=== PATIENT | female | born 1955 | race Two or more races ===

== ENCOUNTER 2019-01-30 00:44 | Emergency (ER) | payer OTHER ==
[~2019-01-30] VITALS: Ht 154.9 cm; Wt 74.8 kg
--- NOTE | 2019-01-30 01:00 | NUR ---
PT [id number] [facility] C/O R KNEE PAIN S/P GLF X 3 WEEKS AGO. PATIENT ALSO C/O "BRONCHITIS". NAD NOTED. RESP EVEN AND UNLABORED. PT ON MONITOR IN BED 9. WILL CONTINUE TO MONITOR.
--- NOTE | 2019-01-30 01:24 | NUR ---
RADIOLOGY AT BEDSIDE FOR XRAY
[2019-01-30] MEDS ORDERED: ACETAMINOPHEN 325 MG TABLET PO ONE (01:30)
[2019-01-30] MEDS ORDERED: ACETAMINOPHEN 325 MG TABLET ONE (01:37)
[2019-01-30] MEDS ORDERED: AMOX/CLAVULANATE 875 MG TABLET PO ONE (04:00)
[2019-01-30] MEDS ORDERED: AZITHROMYCIN 250 MG TABLET PO ONE (04:00)
[2019-01-30] MEDS ORDERED: oxyCODONE/APAP (5/325 MG) 1 UDTAB TABLET PO ONE (04:00)
[2019-01-30] MEDS ORDERED: ACETAMINOPHEN W/ CODEINE#3 1 EA TABLET PO ONE (04:00)
[2019-01-30] MEDS ORDERED: ACETAMINOPHEN W/ CODEINE#3 1 EA TABLET ONE (04:18)
[2019-01-30] MEDS ORDERED: AZITHROMYCIN 250 MG TABLET ONE (04:19)
[2019-01-30] MEDS ORDERED: AMOX/CLAVULANATE 875 MG TABLET ONE (04:19)
[2019-01-30 04:25] VITALS: BP 149/80
--- NOTE | 2019-01-30 04:25 | NUR ---
Patient is resting comfortably in bed. VSS.
--- NOTE | 2019-01-30 05:53 | NUR ---
Patient discharged to home in stable condition. Written and verbal after care instructions given. Patient verbalizes understanding of instruction. PT AMBULATORY WITH STEADY GAIT.
== END 2019-01-30 05:54 | disposition home or self-care (01) ==
LOC: ER 00:45
DX: S80.01XA Contusion of right knee, initial encounter (principal); M16.11 Unilateral primary osteoarthritis, right hip; J45.909 Unspecified asthma, uncomplicated; J32.9 Chronic sinusitis, unspecified; F17.200 Nicotine dependence, unspecified, uncomplicated; I10 Essential (primary) hypertension; F31.9 Bipolar disorder, unspecified; Z98.890 Other specified postprocedural states; Z60.2 Problems related to living alone; W18.39XA Other fall on same level, initial encounter; Y93.89 Activity, other specified; Y92.89 Other specified places as the place of occurrence of the external cause; Y99.8 Other external cause status
CPT/HCPCS: 71045-TC; 72170-TC; 73564-TC

== ENCOUNTER 2022-06-19 11:06 | Inpatient (IN) | payer MEDICARE, OTHER ==
[~2022-06-19] VITALS: Ht 165.1 cm; Wt 48.5 kg
--- NOTE | 2022-06-19 11:30 | NUR ---
COVID SWAB DONE AND SENT TO LAB
--- NOTE | 2022-06-19 11:34 | NUR ---
SINGING TEACHER AT BEDSIDE FOR BLOOD DRAW
[2022-06-19] MEDS ORDERED: LEVO100T PO (11:44)
[2022-06-19] MEDS ORDERED: TEMA15CA PO (11:44)
[2022-06-19] MEDS ORDERED: ARIP15TA PO (11:44)
[2022-06-19] MEDS ORDERED: POTA-88 PO (11:44)
[2022-06-19] MEDS ORDERED: MULT-447 PO (11:44)
[2022-06-19] MEDS ORDERED: DOCU-141 PO (11:44)
[2022-06-19] MEDS ORDERED: SODI88SP18 NS (11:44)
[2022-06-19] MEDS ORDERED: PALI234D IM (11:44)
[2022-06-19] MEDS ORDERED: CALC-15 PO (11:44)
[2022-06-19] MEDS ORDERED: CARV12.52 PO (11:44)
[2022-06-19] MEDS ORDERED: CYCL30DR OP (11:44)
[2022-06-19] MEDS ORDERED: MAGN400O6 PO (11:44)
[2022-06-19] MEDS ORDERED: CHOL200013 PO (11:44)
[2022-06-19] MEDS ORDERED: PANT40TA49 PO (11:44)
[2022-06-19] MEDS ORDERED: FLUT16SP NS (11:44)
[2022-06-19] MEDS ORDERED: CYAN-51 PO (11:44)
[2022-06-19] MEDS ORDERED: AMLO-212 PO (11:44)
[2022-06-19] MEDS ORDERED: LAMO200T10 PO (11:44)
[2022-06-19] MEDS ORDERED: FURO-144 PO (11:44)
[2022-06-19] MEDS ORDERED: OLAN5TAB3 PO (11:44)
[2022-06-19] MEDS ORDERED: GABA-532 PO (11:44)
[2022-06-19] MEDS ORDERED: IPRA4AER INH (11:44)
[2022-06-19 11:46] LABS: BASOPHILS # (AUTO) 0.1 K/uL (0.0-0.2); BASOPHILS % (AUTO) 0.9 % (0.0-2.0); EOSINOPHILS % (AUTO) 2.6 % (0.0-6.0); HEMATOCRIT 42 % (33-45); HEMOGLOBIN 13.9 g/dL (11.5-14.8); LYMPHOCYTES # (AUTO) 1.5 K/uL (0.8-4.8); LYMPHOCYTES % (AUTO) 22.3 % (20.0-44.0); MEAN CORPUSCULAR HGB CONC 33 g/dl (31.0-36.0); MEAN CORPUSCULAR VOLUME 85 fL (82-100); MONOCYTES # (AUTO) 0.6 K/uL (0.1-1.30); MONOCYTES % (AUTO) 9.8 % (2.0-12.0); NEUTROPHILS # (AUTO) 4.2 K/uL (1.8-8.9); NEUTROPHILS % (AUTO) 64.4 % (43.0-81.0); PLATELET COUNT (AUTO) 239 K/uL (150-450); RED BLOOD CELL COUNT(AUTO) 4.93 MIL/uL (4.0-5.2); WHITE BLOOD COUNT (AUTO) 6.6 K/uL (4.3-11.0)
--- NOTE | 2022-06-19 11:51 | NUR ---
urine sample sent to lab
[2022-06-19 11:57] LABS: CALCIUM, SERUM 9.4 mg/dL (8.5-10.1); CARBON DIOXIDE 27 mmol/L (21-32); CHLORIDE 104 mmol/L (98-107); CREATININE 1.1 mg/dL (0.6-1.3); GLUCOSE 102 mg/dL (74-106); SODIUM SERUM 142 mmol/L (136-145); UREA NITROGEN, BLOOD 31 mg/dL (7-18)
[2022-06-19 12:06] LABS: ALANINE AMINOTRANSFERASE 49 U/L (12-78); ALBUMIN 3.5 g/dL (3.4-5.0); ALCOHOL, BLOOD < 3 mg/dL (0-0); ALKALINE PHOSPHATASE 95 U/L (46-116); ASPARTATE AMINOTRANSFERASE 32 U/L (15-37); BILIRUBIN,DIRECT 0.2 mg/dL (0.0-0.2); BILIRUBIN,TOTAL 0.7 mg/dL (0.2-1.0); TOTAL PROTEIN, SERUM 7.4 g/dL (6.4-8.2)
[2022-06-19 12:07] LABS: ACETAMINOPHEN < 10 ug/ml (10-30)
--- NOTE | 2022-06-19 12:30 | NUR ---
MOVE SHEET SUBMITTED.
[2022-06-19 12:41] LABS: BILIRUBIN,URINE MODERATE (NEGATIVE); COLOR,URINE YELLOW (YELLOW); LEUKOCYTE ESTERASE ,URINE LARGE (NEGATIVE); NITRITE, URINE NEGATIVE (NEGATIVE); PROTEIN,URINE TRACE mg/dl (NEGATIVE); UGLUCOSE NEGATIVE (NEGATIVE)
[2022-06-19 13:32] LABS: BACTERIA,URINE Moderate /HPF (None Seen)
[2022-06-19 13:33] LABS: MUCUS,URINE Many /LPF (None Seen); SQUAMOUS EPITHELIAL CELL,UR Many /HPF (None Seen)
[2022-06-19 13:34] LABS: CALCIUM OXALATE CRYSTALS,UR Few /HPF (None Seen)
[2022-06-19] MEDS ORDERED: CEFTRIAXONE 1GM BAG (ER ONLY) 1 GM/50 ML PIGGYBACK IV ONE (14:00)
[2022-06-19] MEDS ORDERED: IV NS 0.9% 1,000 ML IV ONE (14:00)
[2022-06-19] MEDS ORDERED: POTASSIUM CHLORIDE 20 MEQ TAB.PRT.SR PO ONE ×2 (14:00→14:30)
[2022-06-19] MEDS ORDERED: CEFTRIAXONE 1GM BAG (ER ONLY) 50 ML IV ONE (14:58)
[2022-06-19] MEDS ORDERED: CEFTRIAXONE 1 G in IV D5W 50 ML IV ONE (15:00)
--- NOTE | 2022-06-19 15:55 | NUR ---
GOT BED 219-B
--- NOTE | 2022-06-19 16:21 | NUR ---
REPORT GIVEN TO MARYANN KATZ FOR SABIHA
--- NOTE | 2022-06-19 16:40 | NUR ---
transferred to bed in stable condition
--- NOTE | 2022-06-19 16:45 | NUR ---
RN-ADMISSION NOTES ADMITTED 67 YEARS OLD FEMALE PATIENT FROM [facility]. PATIENT ON 5150 FOR DTS AND GD ADULT. PATIENT IS UNDER THE CARE OF DR. LORENZO ( PSYCHIATRIST) DR. STARK ( DECAL APPLIER ) MADE AWARE OF THE ADMISSION AND THAT MEDICATIONS TO BE RECONCILE. UPON FACE TO FACE INTERVIEW , PATIENT IS A/O X3,GUARDED,CALM AND COOPERATIVE. PATIENT VERBALLY CONSENT FOR THE ADMISSION PAPERS BUT REFUSED TO SIGN. FULL BODY ASSESSMENT DONE, OFFERED SHOWER BUT PATIENT REFUSED. ADVISEMENT AND PATIENT'S RIGHT /MEDICATIONS BOOKLET WAS GIVEN TO THE PATIENT. PATIENT WAS ORIENTED IN THE UNIT AND UNIT POLICIES. CALLED GRISELDA WALL @ [phone] ( FAMILY) AND LEFT A VOICE MESSAGE. ALL NEEDS ATTENDED AND ANTICIPATED. WILL ENDORSE TO INCOMING NURSE FOR CONTINUITY OF CARE.
[2022-06-19] MEDS ORDERED: ACETAMINOPHEN 325 MG TABLET PO PRN (17:00)
[2022-06-19] MEDS ORDERED: BLOOD SUGAR DIAGNOSTIC 1 EACH STRIP IN ONE (17:00)
[2022-06-19] MEDS ORDERED: MAG HYDROX/AL HYDROX/SIMETH 30 ML UDC PO PRN (17:00)
[2022-06-19] MEDS ORDERED: MAGNESIUM HYDROXIDE 30 ML UDC PO PRN (17:00)
--- NOTE | 2022-06-19 17:21 | NUR ---
admitting working on the chart, cannot depart at the moment
[2022-06-19 17:26] VITALS: BP 130/82
--- NOTE | 2022-06-19 19:30 | NUR ---
RECEIVED PT ASLEEP IN BED BUT EASILY AWAKENS, NO S/S OR COMPLAINTS OF PAIN AT THIS TIME. PT IS DISPLAYING NO S/S OF APPARENT DISTRESS AT THIS TIME. GUARDED, CALM AND COOPERATIVE. PT BREATHING IS UNLABORED WITH EQUAL RISE AND FALL OF THE CHEST. PT IS ALERT AND ORIENTED X3. ON ROOM AIR. PT DENIES SUICIDE IDEATIONS AND HOMICIDAL IDEATIONS AT THIS TIME. PT ASSISTED WITH TURNING AND REPOSITIONING Q2H AND PRN FOR COMFORT AND CIRCULATION. PT HAS NO NEEDS AT THIS TIME. PT EDUCATED ON THE USE OF THE CALL SILVERMAN. PT BED SIDE RAILS UP X2 FOR SAFETY. BED IS LOCKED AND IN LOW. WILL CONTINUE TO MONITOR Q15 MIN WITH THE HELP OF STAFF TO MAINTAIN SAFETY.
[2022-06-19 20:42] VITALS: BP 142/92
--- NOTE | 2022-06-20 06:55 | NUR ---
PATIENT ASLEEP COMFORTABLY IN BED. A/OX2. ABLE TO MAKE NEEDS KNOWN. UNSTEADY GAIT. ALL NEEDS ATTENDED AND ANTICIPATED. SAFETY MEASURES MAINTAINED. REMINDED PT ON THE USE OF THE CALL SILVERMAN. PT BED SIDE RAILS UP X2 FOR SAFETY. BED IS LOCKED AND IN LOW POSITION. WILL ENDORSE TO NEXT NURSE ON DUTY FOR CONTINUITY OF CARE.
[2022-06-20 07:53] LABS: CHOLESTEROL 157 mg/dL (<200); HDL CHOLESTEROL 42 mg/dL (40-60); LDL 100 mg/dL (0-99); TRIGLYCERIDES 49 mg/dL (30-150)
[2022-06-20 07:55] LABS: ALBUMIN 3.2 g/dL (3.4-5.0); BILIRUBIN,TOTAL 0.5 mg/dL (0.2-1.0); CALCIUM, SERUM 8.5 mg/dL (8.5-10.1); CREATININE 0.7 mg/dL (0.6-1.3); POTASSIUM 3.4 mmol/L (3.5-5.1); TOTAL PROTEIN, SERUM 6.8 g/dL (6.4-8.2)
[2022-06-20 08:00] VITALS: BP 117/70
[2022-06-20] MEDS: ENSURE ENLIVE 237 ML LIQUID (VANILLA) PO SCH ×2 (10:59→16:45)
[2022-06-20] MEDS: CEPHALEXIN MONOHYDRATE 500 MG CAPSULE PO SCH ×2 (11:00→21:10)
[2022-06-20] MEDS ORDERED: POTASSIUM CHLORIDE 20 MEQ TAB.PRT.SR PO SCH (12:00)
[2022-06-20 16:00] VITALS: BP 131/93
[2022-06-20 16:48] LABS: CREATININE 0.7 mg/dL (0.6-1.3)
[2022-06-20] MEDS: ARIPIPRAZOLE 5 MG TABLET PO SCH (17:36)
[2022-06-20] MEDS: LamoTRIgine 25 MG TABLET PO SCH (17:37)
--- NOTE | 2022-06-20 20:24 | NUR ---
RN NOTE:RECEIVED PATIENT RESTING IN HER ROOM, NO S/SX OF ACUTE DISTRESS NOTED,GUARDED, SUSPICIOUS, DISORGANIZED, PARANOID, NEEDS FREQUENT REDIRECTION. DENIES SI/HI AT THIS TIME.ENCOURAGE TO VERBALIZED ANY FEELING OR CONCERN, SAFETY MEASURES IN PLACE. WILL CONTINUE TO MONITOR Q15MIN ROUNDS FOR SAFETY AND BEHAVIOR.
[2022-06-20 21:03] VITALS: BP 132/77
[2022-06-20] MEDS ORDERED: ZOLPIDEM TARTRATE 5 MG TABLET PO PRN (21:30)
--- NOTE | 2022-06-21 06:00 | NUR ---
RN NOTES: REFUSED SHOWER PT. REFUSED SHOWER , PER PT. I DONT WANT SHOWER AT THIS TIME, PT BEHAVIOR UNCOOPERTIVE , EASILY AGITATED , ENCOURAGED X3 FOR SHOWER, BUT PT. STRONGLY REFUSED, ENDORSE TO AM SHIFT NURSE.
[2022-06-21 08:00] VITALS: BP 142/86
[2022-06-21] MEDS: ENSURE ENLIVE 237 ML LIQUID (VANILLA) PO SCH ×2 (08:19→16:14)
[2022-06-21] MEDS: ARIPIPRAZOLE 5 MG TABLET PO SCH (08:20)
[2022-06-21] MEDS: LamoTRIgine 25 MG TABLET PO SCH (08:20)
[2022-06-21] MEDS: CEPHALEXIN MONOHYDRATE 500 MG CAPSULE PO SCH ×2 (08:20→21:19)
[2022-06-21 08:22] LABS: CALCIUM, SERUM 9.1 mg/dL (8.5-10.1); CREATININE 0.7 mg/dL (0.6-1.3); POTASSIUM 3.3 mmol/L (3.5-5.1)
[2022-06-21] MEDS ORDERED: POTASSIUM CHLORIDE 20 MEQ TAB.PRT.SR PO SCH (10:30)
[2022-06-21 16:00] VITALS: BP 135/71
[2022-06-21 20:10] VITALS: BP 115/72
[2022-06-21 20:36] VITALS: BP 115/72
[2022-06-21] MEDS: TRAZODONE 50 MG TABLET PO SCH (21:22)
--- NOTE | 2022-06-22 06:40 | NUR ---
RN NOTE PATIENT SLEPT WELL AT NIGHT, DISHEVELED, MALODOROUS, OFFERED SHOWER MULTIPLE TIMES BUT PATIENT STATED," I WILL TAKE A SHOWER LATER, AFTER BREAKFAST." PATIENT CONTINUED TO TAKE A SHOWER AT THIS TIME. WILL ENDORSE TO AM NURSE TO ENCOURAGE PATIENT TO TAKE A SHOWER.
[2022-06-22 08:00] VITALS: BP 129/90
[2022-06-22 08:01] LABS: CALCIUM, SERUM 9.1 mg/dL (8.5-10.1); CREATININE 0.7 mg/dL (0.6-1.3); POTASSIUM 3.7 mmol/L (3.5-5.1)
[2022-06-22] MEDS: LamoTRIgine 25 MG TABLET PO SCH (09:07)
[2022-06-22] MEDS: ENSURE ENLIVE 237 ML LIQUID (VANILLA) PO SCH ×2 (09:08→17:53)
[2022-06-22] MEDS: CEPHALEXIN MONOHYDRATE 500 MG CAPSULE PO SCH ×2 (09:08→21:23)
[2022-06-22] MEDS: ARIPIPRAZOLE 5 MG TABLET PO SCH (09:08)
--- NOTE | 2022-06-22 13:23 | NUR ---
Facility Contact: SW attempted to contact Vangie caregiver at the facility ([phone]) and was unable to leave a voicemail.
--- NOTE | 2022-06-22 13:23 | NUR ---
DOT Initial Discharge Note: Patient currently resides at [facility] located at [address] [place] [address]; ([phone]). DOT contacted Vangie caregiver at the facility ([phone]) and was unable to leave a voicemail and the mailbox was full. DOT will work with the MD, treatment team, and pt to help coordinate appropriate discharge.
--- NOTE | 2022-06-22 13:24 | NUR ---
DOT Clinical Note: Pt placed on a 5150 hold for danger to herself and GD. Pt was not eating at her facility and was not taking her medications. Patient currently resides at [facility] located at [address] [place] [address]; ([phone]). DOT contacted Vangie caregiver at the facility ([phone]) and was unable to leave a voicemail and the mailbox was full. DOT will work with the MD, treatment team, and pt to help coordinate appropriate discharge.
--- NOTE | 2022-06-22 13:49 | NUR ---
Treatment Plan: Pt refused to sign treatment and was depressed.
--- NOTE | 2022-06-22 13:50 | NUR ---
Family Contact: SW contacted pt's niece Evelin ([phone]) and left a detailed voicemail of pt admission at the hospital.
[2022-06-22 16:00] VITALS: BP 134/86
[2022-06-22 20:06] VITALS: BP 147/71
[2022-06-22] MEDS: TRAZODONE 50 MG TABLET PO SCH (21:28)
[2022-06-22 22:56] VITALS: BP 147/71
[2022-06-23 08:00] VITALS: BP 129/86
--- NOTE | 2022-06-23 08:04 | NUR ---
WOUND CARE CONSULT: PT PRESENTS WITH RED RASH TO CHEST AREA,UNKNOWN ETIOLOGY AND RASH WITH SOME ODOR TO BREASTFOLDS, ALL PRESENT ON ADMISSION. RECOMMENDATIONS MADE FOR BREASTFOLD RASH (LOTRIMIN CREAM) AND DEFER TO MD FOR CHEST RASH. DISCUSSED SKIN PROTECTION WITH NURSING STAFF. PT AGREES TO TAKE SHOWER TODAY. MD IN AGREEMENT WITH PLAN OF CARE.
[2022-06-23] MEDS ORDERED: Z GUARD REMEDY 4 OZ OINT TP PRN (08:30)
[2022-06-23] MEDS ORDERED: CLOTRIMAZOLE 1% 15 GM TUBE TP SCH (09:00)
--- NOTE | 2022-06-23 09:10 | NUR ---
Facility Contact: DOT spoke with Helen from [facility] ([phone]) who stated that pt is welcomed back, however, stated [facility] or [facility] will contact this pattern chart writer to confirm.
[2022-06-23] MEDS: LamoTRIgine 25 MG TABLET PO SCH (09:42)
[2022-06-23] MEDS: CEPHALEXIN MONOHYDRATE 500 MG CAPSULE PO SCH ×2 (09:42→21:10)
[2022-06-23] MEDS: ARIPIPRAZOLE 5 MG TABLET PO SCH (09:42)
[2022-06-23] MEDS: ENSURE ENLIVE 237 ML LIQUID (VANILLA) PO SCH ×2 (09:43→17:10)
--- NOTE | 2022-06-23 09:55 | NUR ---
Facility Contact: DOT spoke with [facility] from admissions ([phone]) (F:[phone]) who stated pt is welcomed back and will require updated clinicals faxed.
[2022-06-23 16:15] VITALS: BP 119/62
[2022-06-23] MEDS: CLOTRIMAZOLE 1% 15 GM TUBE TP SCH (17:13)
--- NOTE | 2022-06-23 19:30 | NUR ---
GPS RN NOTES RECEIVED PT LYING IN BED ASLEEP, EASY TO AROUSE. A/O X3. NOT IN APPARENT DISTRESS. NO C/O PAIN OR DISCOMFORT. PT IS PASSIVE, FLAT AFFECT, GUARDED, WITHDRAWN, DISHEVELED. ENCOURAGED TO VERBALIZE FEELINGS OR THOUGHTS. SAFETY PRECAUTIONS IN PLACED. WILL CONTINUE TO MONITOR Q15MIN ROUNDS FOR SAFETY AND BEHAVIOR.
--- NOTE | 2022-06-23 21:00 | NUR ---
OFFERED PT TO SHOWER, STATED SHE WILL IN 30 MINS BUT REFUSED WHEN ASKED AGAIN. WILL ENCOURAGE TO SHOWER IN THE AM.
[2022-06-23] MEDS: TRAZODONE 50 MG TABLET PO SCH (21:10)
[2022-06-23 22:30] VITALS: BP 101/72
[2022-06-24 08:00] VITALS: BP 112/75
[2022-06-24] MEDS: LamoTRIgine 25 MG TABLET PO SCH (08:52)
[2022-06-24] MEDS: ARIPIPRAZOLE 5 MG TABLET PO SCH (08:53)
[2022-06-24] MEDS: CEPHALEXIN MONOHYDRATE 500 MG CAPSULE PO SCH ×2 (08:53→21:36)
[2022-06-24] MEDS: ENSURE ENLIVE 237 ML LIQUID (VANILLA) PO SCH ×2 (08:53→17:51)
[2022-06-24] MEDS: CLOTRIMAZOLE 1% 15 GM TUBE TP SCH ×2 (08:55→17:50)
--- NOTE | 2022-06-24 11:18 | NUR ---
Court Notification: SW contacted pt's darlin Waters ([phone]) and was unavailable. SW notified of 5250 hearing and left a voicemail.
--- NOTE | 2022-06-24 11:19 | NUR ---
Court Hearing: Patient's court hearing for 1930 was today and it was upheld for GD.
[2022-06-24] MEDS ORDERED: MAGNESIUM HYDROXIDE 30 ML UDC PO PRN (12:00)
[2022-06-24] MEDS ORDERED: Medication Not On Formulary EA (Ipratropium/Albuterol Sulfate (Combivent Respimat 20-100 INH SCH (13:00)
[2022-06-24] MEDS: GABAPENTIN 100 MG CAPSULE PO SCH ×2 (13:14→17:50)
[2022-06-24 16:00] VITALS: BP 142/86
[2022-06-24] MEDS: FLUTICASONE PROPIONATE 16 GM BOTTLE NS SCH (17:50)
[2022-06-24] MEDS: SALINE NASAL SPRAY 0.65% 1 BOTTLE BOTTLE NS SCH (17:51)
[2022-06-24] MEDS: IPRATROPIUM NEB FS 0.5 MG/2.5 ML AMPUL.NEB NEB SCH (19:30)
[2022-06-24] MEDS: ALBUTEROL FS 2.5 MG/0.5 ML VIAL.NEB NEB SCH (19:30)
[2022-06-24 20:00] VITALS: BP 117/82
[2022-06-24] MEDS: CARVEDILOL 12.5 MG TABLET PO SCH (21:37)
[2022-06-24] MEDS: TRAZODONE 50 MG TABLET PO SCH (21:50)
[2022-06-25] MEDS: IPRATROPIUM NEB FS 0.5 MG/2.5 ML AMPUL.NEB NEB SCH ×4 (01:30→20:45)
[2022-06-25] MEDS: ALBUTEROL FS 2.5 MG/0.5 ML VIAL.NEB NEB SCH ×4 (01:30→20:45)
[2022-06-25 08:00] VITALS: BP 106/64
[2022-06-25] MEDS: ENSURE ENLIVE 237 ML LIQUID (VANILLA) PO SCH ×2 (08:55→16:29)
[2022-06-25] MEDS: FLUTICASONE PROPIONATE 16 GM BOTTLE NS SCH ×2 (08:55→16:30)
[2022-06-25] MEDS: CEPHALEXIN MONOHYDRATE 500 MG CAPSULE PO SCH (08:56)
[2022-06-25] MEDS: GABAPENTIN 100 MG CAPSULE PO SCH ×4 (08:56→16:33)
[2022-06-25] MEDS: SALINE NASAL SPRAY 0.65% 1 BOTTLE BOTTLE NS SCH ×2 (08:56→16:30)
[2022-06-25] MEDS: ARIPIPRAZOLE 5 MG TABLET PO SCH (08:56)
[2022-06-25] MEDS: CARVEDILOL 12.5 MG TABLET PO SCH ×2 (08:57→20:45)
[2022-06-25] MEDS: DOCUSATE SODIUM 100 MG CAPSULE PO SCH ×2 (09:00→09:02)
[2022-06-25] MEDS ORDERED: FUROSEMIDE 40 MG TABLET PO SCH (09:00)
[2022-06-25] MEDS: AMLODIPINE BESYLATE 5 MG TABLET PO SCH (09:00)
[2022-06-25] MEDS: CHOLECALCIFEROL 1,000 UNIT TABLET (VIT D3) PO SCH (09:01)
[2022-06-25] MEDS: CALCIUM CARB 600MG /VIT D 1 EACH TABLET PO SCH (09:02)
[2022-06-25] MEDS: LamoTRIgine 25 MG TABLET PO SCH (09:07)
[2022-06-25] MEDS: CYANOCOBALAMIN 500 MCG TABLET PO SCH (09:08)
[2022-06-25] MEDS: MULTIVIT W/MINERALS 1 TAB TABLET PO SCH (09:08)
[2022-06-25] MEDS: LEVOTHYROXINE SODIUM 100 MCG TABLET PO SCH (09:08)
[2022-06-25] MEDS: PANTOPRAZOLE 40 MG TABLET.DR PO SCH (09:08)
[2022-06-25] MEDS: CLOTRIMAZOLE 1% 15 GM TUBE TP SCH ×3 (09:29→16:33)
--- NOTE | 2022-06-25 10:35 | NUR ---
Received pt. asleep in bed, breathing is even and unlabored. Ate 25% for breakfast, BP meds not given for a low BP and stereoplotter operator made aware and pt. refused for the Colace and compliant on the rest of the meds. Pt. is cooperative with skin treatment and refused to take shower. Encouraged to verbalize feelings and motivated to attend group activity. Needs attended and will continue to monitor for safety.
[2022-06-25 16:00] VITALS: BP 119/76
[2022-06-25 20:00] VITALS: BP 107/67
--- NOTE | 2022-06-25 20:20 | NUR ---
RN NOTES: PT. IN HER ROOM RESTING COMFORTABLY IN BED NO S/SX OF ACUTE DISTRESS NOTED. PATIENT REMAINS ISOLATIVE, WITHDRAWN, GUARDED. ENCOURAGED PT TO ATTEND IN GROUP ACTIVITIES.ENCOURAGED TO VERBALIZATION OF THOUGHTS AND FEELINGS. SAFETY PRECAUTIONS MAINTAINED.WILL CONTINUE TO MONITOR Q15MIN FOR SAFETY AND BEHAVIOR.
--- NOTE | 2022-06-25 20:46 | NUR ---
RN NOTES: PT. BP 107/65 , HELD COREG 12.5 FOR LOW BP, WILL CONTINUE TO MONITOR.
[2022-06-25] MEDS: TRAZODONE 50 MG TABLET PO SCH (21:22)
[2022-06-26] MEDS: IPRATROPIUM NEB FS 0.5 MG/2.5 ML AMPUL.NEB NEB SCH ×4 (01:30→19:30)
[2022-06-26] MEDS: ALBUTEROL FS 2.5 MG/0.5 ML VIAL.NEB NEB SCH ×4 (01:30→19:30)
[2022-06-26 08:00] VITALS: BP 120/77
[2022-06-26] MEDS: GABAPENTIN 100 MG CAPSULE PO SCH ×4 (08:26→16:51)
[2022-06-26] MEDS: CALCIUM CARB 600MG /VIT D 1 EACH TABLET PO SCH (08:26)
[2022-06-26] MEDS: CYANOCOBALAMIN 500 MCG TABLET PO SCH (08:27)
[2022-06-26] MEDS: ARIPIPRAZOLE 5 MG TABLET PO SCH (08:27)
[2022-06-26] MEDS: DOCUSATE SODIUM 100 MG CAPSULE PO SCH (08:27)
[2022-06-26] MEDS: CHOLECALCIFEROL 1,000 UNIT TABLET (VIT D3) PO SCH (08:27)
[2022-06-26] MEDS: PANTOPRAZOLE 40 MG TABLET.DR PO SCH (08:27)
[2022-06-26] MEDS: LEVOTHYROXINE SODIUM 100 MCG TABLET PO SCH (08:28)
[2022-06-26] MEDS: AMLODIPINE BESYLATE 5 MG TABLET PO SCH (08:28)
[2022-06-26] MEDS: CARVEDILOL 12.5 MG TABLET PO SCH ×2 (08:28→21:07)
[2022-06-26] MEDS: MULTIVIT W/MINERALS 1 TAB TABLET PO SCH (08:28)
[2022-06-26] MEDS: CLOTRIMAZOLE 1% 15 GM TUBE TP SCH ×2 (08:29→16:51)
[2022-06-26] MEDS: ENSURE ENLIVE 237 ML LIQUID (VANILLA) PO SCH ×2 (08:29→16:50)
[2022-06-26] MEDS: SALINE NASAL SPRAY 0.65% 1 BOTTLE BOTTLE NS SCH ×2 (08:30→16:50)
[2022-06-26] MEDS: FLUTICASONE PROPIONATE 16 GM BOTTLE NS SCH ×2 (08:30→16:50)
[2022-06-26] MEDS: FUROSEMIDE 40 MG TABLET PO SCH (08:32)
[2022-06-26] MEDS: LamoTRIgine 25 MG TABLET PO SCH (11:47)
--- NOTE | 2022-06-26 13:32 | NUR ---
gps/rn pt refused 1300 meds offered x3
[2022-06-26 16:00] VITALS: BP 132/82
--- NOTE | 2022-06-26 20:14 | NUR ---
RN NOTES :RECEIVED PT.IN HER ROOM RESTING COMFORTABLY IN BED NO S/SX OF ACUTE DISTRESS NOTED. PATIENT REMAINS ISOLATIVE, WITHDRAWN, GUARDED. ENCOURAGED PT TO ATTEND IN GROUP ACTIVITIES.ENCOURAGED TO VERBALIZATION OF THOUGHTS AND FEELINGS.SAFETY PRECAUTIONS MAINTAINED.WILL CONTINUE TO MONITOR . Q15MIN FOR SAFETY AND BEHAVIOR.ROUNDS FOR SAFETY AND BEHAVIOR.
[2022-06-26 20:54] VITALS: BP 126/84
[2022-06-26] MEDS: MIRTAZAPINE 15 MG TABLET PO SCH (21:35)
[2022-06-27] MEDS: IPRATROPIUM NEB FS 0.5 MG/2.5 ML AMPUL.NEB NEB SCH ×4 (01:19→19:30)
[2022-06-27] MEDS: ALBUTEROL FS 2.5 MG/0.5 ML VIAL.NEB NEB SCH ×4 (01:19→19:30)
[2022-06-27 08:00] VITALS: BP 133/82
[2022-06-27] MEDS: LEVOTHYROXINE SODIUM 100 MCG TABLET PO SCH (08:23)
[2022-06-27] MEDS: CYANOCOBALAMIN 500 MCG TABLET PO SCH (08:24)
[2022-06-27] MEDS: AMLODIPINE BESYLATE 5 MG TABLET PO SCH (08:24)
[2022-06-27] MEDS: SALINE NASAL SPRAY 0.65% 1 BOTTLE BOTTLE NS SCH ×2 (08:39→17:22)
[2022-06-27] MEDS: ENSURE ENLIVE 237 ML LIQUID (VANILLA) PO SCH ×2 (08:39→17:22)
[2022-06-27] MEDS: FLUTICASONE PROPIONATE 16 GM BOTTLE NS SCH ×2 (08:39→17:22)
[2022-06-27] MEDS: GABAPENTIN 100 MG CAPSULE PO SCH ×3 (09:00→17:25)
[2022-06-27] MEDS: CHOLECALCIFEROL 1,000 UNIT TABLET (VIT D3) PO SCH (09:00)
[2022-06-27] MEDS: LamoTRIgine 25 MG TABLET PO SCH ×2 (09:00→13:55)
[2022-06-27] MEDS: PANTOPRAZOLE 40 MG TABLET.DR PO SCH (09:00)
[2022-06-27] MEDS: ARIPIPRAZOLE 5 MG TABLET PO SCH ×2 (09:00→13:55)
[2022-06-27] MEDS: FUROSEMIDE 40 MG TABLET PO SCH (09:00)
[2022-06-27] MEDS: DOCUSATE SODIUM 100 MG CAPSULE PO SCH (09:00)
[2022-06-27] MEDS: MULTIVIT W/MINERALS 1 TAB TABLET PO SCH (09:00)
[2022-06-27] MEDS: CALCIUM CARB 600MG /VIT D 1 EACH TABLET PO SCH (09:00)
[2022-06-27] MEDS: CLOTRIMAZOLE 1% 15 GM TUBE TP SCH ×2 (09:00→17:24)
[2022-06-27] MEDS: CARVEDILOL 12.5 MG TABLET PO SCH ×2 (09:00→20:54)
[2022-06-27 16:00] VITALS: BP 114/69
--- NOTE | 2022-06-27 20:27 | NUR ---
RN NOTES: REFUSED SHOWER AND REFUSED SKIN ASSESSMENT PT. REFUSED SHOWER AND REFUSED SKIN ASSESSMENT, PER PT. I DONT WANT SHOWER AT THIS TIME, PT BEHAVIOR UNCOOPERTIVE , EASILY AGITATED , ENCOURAGED X3 FOR SHOWER, BUT PT. STRONGLY REFUSED.
[2022-06-27 20:51] VITALS: BP 115/76
[2022-06-27] MEDS: MIRTAZAPINE 15 MG TABLET PO SCH (21:41)
[2022-06-28] MEDS: ALBUTEROL FS 2.5 MG/0.5 ML VIAL.NEB NEB SCH ×4 (01:30→19:25)
[2022-06-28] MEDS: IPRATROPIUM NEB FS 0.5 MG/2.5 ML AMPUL.NEB NEB SCH ×4 (01:30→19:25)
[2022-06-28 08:00] VITALS: BP 102/69
[2022-06-28] MEDS: GABAPENTIN 100 MG CAPSULE PO SCH ×3 (09:00→17:00)
[2022-06-28] MEDS: CARVEDILOL 12.5 MG TABLET PO SCH ×3 (09:00→21:00)
[2022-06-28] MEDS: AMLODIPINE BESYLATE 5 MG TABLET PO SCH (09:00)
[2022-06-28] MEDS: LEVOTHYROXINE SODIUM 100 MCG TABLET PO SCH (09:00)
[2022-06-28] MEDS: PANTOPRAZOLE 40 MG TABLET.DR PO SCH (09:00)
[2022-06-28] MEDS: LamoTRIgine 25 MG TABLET PO SCH (09:00)
[2022-06-28] MEDS: ARIPIPRAZOLE 5 MG TABLET PO SCH (09:00)
[2022-06-28] MEDS: CHOLECALCIFEROL 1,000 UNIT TABLET (VIT D3) PO SCH (09:00)
[2022-06-28] MEDS: CLOTRIMAZOLE 1% 15 GM TUBE TP SCH ×2 (09:00→17:00)
[2022-06-28] MEDS: FLUTICASONE PROPIONATE 16 GM BOTTLE NS SCH ×2 (09:00→17:00)
[2022-06-28] MEDS: ENSURE ENLIVE 237 ML LIQUID (VANILLA) PO SCH ×2 (09:00→17:00)
[2022-06-28] MEDS: CYANOCOBALAMIN 500 MCG TABLET PO SCH (09:00)
[2022-06-28] MEDS: SALINE NASAL SPRAY 0.65% 1 BOTTLE BOTTLE NS SCH ×2 (09:00→17:00)
[2022-06-28] MEDS: CALCIUM CARB 600MG /VIT D 1 EACH TABLET PO SCH (09:00)
[2022-06-28] MEDS: FUROSEMIDE 40 MG TABLET PO SCH (09:00)
[2022-06-28] MEDS: DOCUSATE SODIUM 100 MG CAPSULE PO SCH (09:00)
[2022-06-28] MEDS: MULTIVIT W/MINERALS 1 TAB TABLET PO SCH (09:00)
--- NOTE | 2022-06-28 09:00 | NUR ---
GPS/RN REFUSED MEDS OFFERED X3
--- NOTE | 2022-06-28 13:00 | NUR ---
GPS/RN REFUSED MEDS OFFERED X3. CHARGE NURSE ANDREW RN OFFERED MEDICATIONS WELL WITH SAME RESULTS
[2022-06-28 16:11] VITALS: BP 121/68
--- NOTE | 2022-06-28 18:28 | NUR ---
GPS/RN PT REFUSED MEDS FOR 1700 OFFERED X3
--- NOTE | 2022-06-28 19:25 | NUR ---
RT Pt refused Q6 neb tx. No SOB or resp distress. RN Yovani notified that pt refused.
[2022-06-28] MEDS: MIRTAZAPINE 15 MG TABLET PO SCH (21:18)
--- NOTE | 2022-06-29 01:01 | NUR ---
PATIENT REFUSED SCHEDULE MEDICATION COREG 12.5MG AND REMERON 15MG. OFFERED MULTIPLE TIMES. DR. LORENZO NOTIFIED IN THE UNIT.
[2022-06-29] MEDS: IPRATROPIUM NEB FS 0.5 MG/2.5 ML AMPUL.NEB NEB SCH ×4 (01:27→20:59)
[2022-06-29] MEDS: ALBUTEROL FS 2.5 MG/0.5 ML VIAL.NEB NEB SCH ×5 (01:27→20:59)
[2022-06-29 08:00] VITALS: BP 124/81
[2022-06-29] MEDS: ARIPIPRAZOLE 5 MG TABLET PO SCH (08:53)
[2022-06-29] MEDS: LEVOTHYROXINE SODIUM 100 MCG TABLET PO SCH (08:53)
[2022-06-29] MEDS: CHOLECALCIFEROL 1,000 UNIT TABLET (VIT D3) PO SCH (08:54)
[2022-06-29] MEDS: LamoTRIgine 25 MG TABLET PO SCH (08:54)
[2022-06-29] MEDS: AMLODIPINE BESYLATE 5 MG TABLET PO SCH (08:54)
[2022-06-29] MEDS: CARVEDILOL 12.5 MG TABLET PO SCH ×2 (08:55→21:00)
[2022-06-29] MEDS: GABAPENTIN 100 MG CAPSULE PO SCH ×3 (08:55→17:45)
[2022-06-29] MEDS: CYANOCOBALAMIN 500 MCG TABLET PO SCH (08:55)
[2022-06-29] MEDS: PANTOPRAZOLE 40 MG TABLET.DR PO SCH (08:56)
[2022-06-29] MEDS: ENSURE ENLIVE 237 ML LIQUID (VANILLA) PO SCH ×2 (08:56→17:46)
[2022-06-29] MEDS: CALCIUM CARB 600MG /VIT D 1 EACH TABLET PO SCH (08:56)
[2022-06-29] MEDS: FUROSEMIDE 40 MG TABLET PO SCH (08:56)
[2022-06-29] MEDS: DOCUSATE SODIUM 100 MG CAPSULE PO SCH (08:56)
[2022-06-29] MEDS: SALINE NASAL SPRAY 0.65% 1 BOTTLE BOTTLE NS SCH ×2 (08:57→17:55)
[2022-06-29] MEDS: CLOTRIMAZOLE 1% 15 GM TUBE TP SCH ×2 (08:57→17:55)
[2022-06-29] MEDS: FLUTICASONE PROPIONATE 16 GM BOTTLE NS SCH ×2 (08:57→17:55)
[2022-06-29] MEDS: MULTIVIT W/MINERALS 1 TAB TABLET PO SCH (09:05)
[2022-06-29 16:00] VITALS: BP 101/73
[2022-06-29 20:07] VITALS: BP 100/59
[2022-06-29 20:15] VITALS: BP 100/59
--- NOTE | 2022-06-29 21:27 | NUR ---
RN NOTE: HELD COREG PATIENT'S BLOOD PRESSURE NOTED TO BE 103/59, 70. ASYMPTOMATIC AT THIS TIME, HELD COREG SCHEDULED AT 2100 TO PREVENT HYPOTENSION. WILL CONTINUE TO MONITOR THE PATIENT FOR ANY CHANGES.
[2022-06-29] MEDS: MIRTAZAPINE 15 MG TABLET PO SCH (22:39)
[2022-06-30] MEDS: ALBUTEROL FS 2.5 MG/0.5 ML VIAL.NEB NEB SCH ×4 (01:30→20:40)
[2022-06-30] MEDS: IPRATROPIUM NEB FS 0.5 MG/2.5 ML AMPUL.NEB NEB SCH ×4 (01:30→20:39)
[2022-06-30 08:00] VITALS: BP 108/65
[2022-06-30] MEDS: AMLODIPINE BESYLATE 5 MG TABLET PO SCH (09:18)
[2022-06-30] MEDS: MULTIVIT W/MINERALS 1 TAB TABLET PO SCH (09:19)
[2022-06-30] MEDS: ARIPIPRAZOLE 5 MG TABLET PO SCH (09:19)
[2022-06-30] MEDS: CALCIUM CARB 600MG /VIT D 1 EACH TABLET PO SCH (09:19)
[2022-06-30] MEDS: DOCUSATE SODIUM 100 MG CAPSULE PO SCH (09:20)
[2022-06-30] MEDS: LamoTRIgine 25 MG TABLET PO SCH (09:20)
[2022-06-30] MEDS: PANTOPRAZOLE 40 MG TABLET.DR PO SCH (09:20)
[2022-06-30] MEDS: CARVEDILOL 12.5 MG TABLET PO SCH ×2 (09:21→21:00)
[2022-06-30] MEDS: CYANOCOBALAMIN 500 MCG TABLET PO SCH (09:21)
[2022-06-30] MEDS: FUROSEMIDE 40 MG TABLET PO SCH (09:21)
[2022-06-30] MEDS: GABAPENTIN 100 MG CAPSULE PO SCH ×3 (09:21→17:17)
[2022-06-30] MEDS: ENSURE ENLIVE 237 ML LIQUID (VANILLA) PO SCH ×2 (09:22→17:18)
[2022-06-30] MEDS: LEVOTHYROXINE SODIUM 100 MCG TABLET PO SCH (09:24)
[2022-06-30] MEDS: FLUTICASONE PROPIONATE 16 GM BOTTLE NS SCH ×2 (09:25→17:17)
[2022-06-30] MEDS: SALINE NASAL SPRAY 0.65% 1 BOTTLE BOTTLE NS SCH ×2 (09:25→17:17)
[2022-06-30] MEDS: CHOLECALCIFEROL 1,000 UNIT TABLET (VIT D3) PO SCH (09:27)
[2022-06-30] MEDS: CLOTRIMAZOLE 1% 15 GM TUBE TP SCH ×2 (09:28→17:18)
--- NOTE | 2022-06-30 09:57 | NUR ---
PATIENT REFUSED TX RN NOTIFIED. PATIENT IS STABLE W/O DISTRESS. Addendum: 06/30/22 at 0958 by SNEHA DEL RIO RT Amended: Links added.
[2022-06-30 16:06] VITALS: BP 97/65
[2022-06-30 19:55] VITALS: BP 102/52
[2022-06-30 20:43] VITALS: BP 102/52
--- NOTE | 2022-06-30 21:16 | NUR ---
RN NOTE PATIENT REFUSED COREG SCHEDULED AT 2100. DESPITE OF RISKS AND BENEFITS EXPLANATIONS, PATIENT CONTINUED TO REFUSE.
[2022-06-30] MEDS: MIRTAZAPINE 15 MG TABLET PO SCH (22:01)
[2022-07-01] MEDS: IPRATROPIUM NEB FS 0.5 MG/2.5 ML AMPUL.NEB NEB SCH ×4 (01:30→21:06)
[2022-07-01] MEDS: ALBUTEROL FS 2.5 MG/0.5 ML VIAL.NEB NEB SCH ×4 (01:30→21:06)
[2022-07-01 08:00] VITALS: BP 105/69
[2022-07-01] MEDS: CYANOCOBALAMIN 500 MCG TABLET PO SCH (08:35)
[2022-07-01] MEDS: PANTOPRAZOLE 40 MG TABLET.DR PO SCH (08:36)
[2022-07-01] MEDS: DOCUSATE SODIUM 100 MG CAPSULE PO SCH (08:36)
[2022-07-01] MEDS: CARVEDILOL 12.5 MG TABLET PO SCH ×2 (08:38→21:00)
[2022-07-01] MEDS: ARIPIPRAZOLE 5 MG TABLET PO SCH (08:39)
[2022-07-01] MEDS: CALCIUM CARB 600MG /VIT D 1 EACH TABLET PO SCH (08:40)
[2022-07-01] MEDS: CHOLECALCIFEROL 1,000 UNIT TABLET (VIT D3) PO SCH (08:40)
[2022-07-01] MEDS: AMLODIPINE BESYLATE 5 MG TABLET PO SCH (08:40)
[2022-07-01] MEDS: MULTIVIT W/MINERALS 1 TAB TABLET PO SCH (08:41)
[2022-07-01] MEDS: GABAPENTIN 100 MG CAPSULE PO SCH ×3 (08:41→17:38)
[2022-07-01] MEDS: FUROSEMIDE 40 MG TABLET PO SCH (08:41)
[2022-07-01] MEDS: ENSURE ENLIVE 237 ML LIQUID (VANILLA) PO SCH ×2 (08:52→17:38)
--- NOTE | 2022-07-01 09:36 | NUR ---
RT Patient refused breathing tx. No SOB or respiratory distress noted.
[2022-07-01] MEDS: SALINE NASAL SPRAY 0.65% 1 BOTTLE BOTTLE NS SCH ×2 (09:45→17:38)
[2022-07-01] MEDS: FLUTICASONE PROPIONATE 16 GM BOTTLE NS SCH ×2 (09:45→17:38)
[2022-07-01] MEDS: CLOTRIMAZOLE 1% 15 GM TUBE TP SCH ×2 (09:46→17:39)
[2022-07-01] MEDS: LEVOTHYROXINE SODIUM 100 MCG TABLET PO SCH (09:47)
[2022-07-01] MEDS: LamoTRIgine 100 MG TABLET PO SCH (11:17)
--- NOTE | 2022-07-01 13:19 | NUR ---
RT Patient refused breathing tx again. RN Elba notified.
[2022-07-01 16:00] VITALS: BP 107/68
[2022-07-01 20:00] VITALS: BP 103/70
[2022-07-01] MEDS: MIRTAZAPINE 15 MG TABLET PO SCH (21:24)
[2022-07-02] MEDS: ALBUTEROL FS 2.5 MG/0.5 ML VIAL.NEB NEB SCH ×4 (01:30→20:26)
[2022-07-02] MEDS: IPRATROPIUM NEB FS 0.5 MG/2.5 ML AMPUL.NEB NEB SCH ×4 (01:30→20:26)
--- NOTE | 2022-07-02 01:56 | NUR ---
Pt refused breathing tx, RN is aware.
[2022-07-02 08:00] VITALS: BP 129/82
[2022-07-02] MEDS: ARIPIPRAZOLE 5 MG TABLET PO SCH (08:54)
[2022-07-02] MEDS: GABAPENTIN 100 MG CAPSULE PO SCH ×3 (08:54→17:10)
[2022-07-02] MEDS: CHOLECALCIFEROL 1,000 UNIT TABLET (VIT D3) PO SCH (08:54)
[2022-07-02] MEDS: CYANOCOBALAMIN 500 MCG TABLET PO SCH (08:54)
[2022-07-02] MEDS: LamoTRIgine 100 MG TABLET PO SCH (08:54)
[2022-07-02] MEDS: CARVEDILOL 12.5 MG TABLET PO SCH ×2 (08:55→21:50)
[2022-07-02] MEDS: CALCIUM CARB 600MG /VIT D 1 EACH TABLET PO SCH (08:55)
[2022-07-02] MEDS: AMLODIPINE BESYLATE 5 MG TABLET PO SCH (08:55)
[2022-07-02] MEDS: FUROSEMIDE 40 MG TABLET PO SCH (08:55)
[2022-07-02] MEDS: PANTOPRAZOLE 40 MG TABLET.DR PO SCH (09:01)
[2022-07-02] MEDS: LEVOTHYROXINE SODIUM 100 MCG TABLET PO SCH (09:03)
[2022-07-02] MEDS: DOCUSATE SODIUM 250 MG CAPSULE PO SCH (09:03)
[2022-07-02] MEDS: MULTIVIT W/MINERALS 1 TAB TABLET PO SCH (09:03)
[2022-07-02] MEDS: ENSURE ENLIVE 237 ML LIQUID (VANILLA) PO SCH ×2 (09:05→17:10)
[2022-07-02] MEDS: FLUTICASONE PROPIONATE 16 GM BOTTLE NS SCH ×2 (09:06→17:11)
[2022-07-02] MEDS: SALINE NASAL SPRAY 0.65% 1 BOTTLE BOTTLE NS SCH ×2 (09:07→17:11)
[2022-07-02] MEDS: CLOTRIMAZOLE 1% 15 GM TUBE TP SCH ×2 (10:08→17:11)
--- NOTE | 2022-07-02 13:43 | NUR ---
RN-NOTES PATIENT REFUSED NEURONTIN 300MG P.O . OFFERED X3
[2022-07-02 16:00] VITALS: BP 125/83
--- NOTE | 2022-07-02 18:33 | NUR ---
RN-NOTES PATIENT ISOLATIVE IN THE ROOM ENCOURAGED TO ATTEND GROUPS BUT PREFERS TO STAY IN THE ROOM ,NO ACUTE DISTRESS NOTED.PATIENT AMBULATES TO THE BATHROOM WITH STEADY GAIT.GUARDED,REFUSED 1300 MEDICATIONS THIS SHIFT.ALL NEEDS ATTENDED AND ANTICIPATED. WILL CONT. MONITORING FOR SAFETY AND BEHAVIOR.WILL ENDORSE TO INCOMING SHIFT FOR CONTINUITY OF CARE.
--- NOTE | 2022-07-02 19:30 | NUR ---
GPS RN NOTE, RECEIVED PATIENT AWAKE AND IN BED, NO S/S OR COMPLAINTS OF PAIN AT THIS TIME. PATIENT IS DISPLAYING NO S/S OF APPARENT DISTRESS AT THIS TIME. PATIENT BREATHING IS UNLABORED WITH EQUAL RISE AND FALL OF THE CHEST. PATIENT IS ALERT AND ORIENTED X 3 ON ROOM AIR WITH A SPO2 99%. PATIENT IS SELECTIVE WITH MEDICATIONS, DEPRESSED, ISOLATIVE, MALODOROUS, AND COOPERATIVE. PATIENT DENIES SUICIDAL AND HOMICIDAL IDEATIONS AT THIS TIME. PATIENT ASSISTED WITH TURNING AND REPOSITIONING Q2HR AND PRN FOR COMFORT AND CIRCULATION. PATIENT HAS NO NEEDS AT THIS TIME. PATIENT EDUCATED ON THE USE OF THE CALL SILVERMAN. PATIENT BED SIDE RAILS UP X 2 FOR SAFETY. PATIENT BED IS LOCKED, LOW, WITH BED ALARM ON. WILL CONTINUE TO MONITOR THIS PATIENT Q15 MINUTES WITH THE HELP OF STAFF TO MAINTAIN SAFETY.
[2022-07-02 20:00] VITALS: BP 110/66
--- NOTE | 2022-07-02 21:07 | NUR ---
Pt refused neb tx
[2022-07-02] MEDS: MIRTAZAPINE 15 MG TABLET PO SCH (21:54)
--- NOTE | 2022-07-02 21:54 | NUR ---
GPS RN NOTE, PATIENT REFUSED REMERON 15MG PO HS. OFFERED REMERON THREE TIMES AND STILL PATIENT REFUSED STATING, " NO I JUST FEEL LIKE IT DOES NOTHING FOR ME SO I'M NOT GOING TO TAKE IT ". EDUCATED PATIENT ON THE RISKS AND BENEFITS OF TAKING AND REFUSING AFOREMENTIONED MEDICATION. WILL CONTINUE TO MONITOR THIS PATIENT WITH THE HELP OF STAFF.
[2022-07-03] MEDS: IPRATROPIUM NEB FS 0.5 MG/2.5 ML AMPUL.NEB NEB SCH ×4 (01:30→19:30)
[2022-07-03] MEDS: ALBUTEROL FS 2.5 MG/0.5 ML VIAL.NEB NEB SCH ×4 (01:30→19:30)
[2022-07-03 08:00] VITALS: BP 115/77
[2022-07-03] MEDS: FLUTICASONE PROPIONATE 16 GM BOTTLE NS SCH ×2 (09:53→18:01)
[2022-07-03] MEDS: SALINE NASAL SPRAY 0.65% 1 BOTTLE BOTTLE NS SCH ×2 (09:53→18:02)
[2022-07-03] MEDS: CLOTRIMAZOLE 1% 15 GM TUBE TP SCH ×2 (09:54→18:02)
[2022-07-03] MEDS: ENSURE ENLIVE 237 ML LIQUID (VANILLA) PO SCH ×2 (09:54→17:59)
[2022-07-03] MEDS: CHOLECALCIFEROL 1,000 UNIT TABLET (VIT D3) PO SCH (09:59)
[2022-07-03] MEDS: CARVEDILOL 12.5 MG TABLET PO SCH ×2 (09:59→20:36)
[2022-07-03] MEDS: DOCUSATE SODIUM 250 MG CAPSULE PO SCH (09:59)
[2022-07-03] MEDS: CALCIUM CARB 600MG /VIT D 1 EACH TABLET PO SCH (09:59)
[2022-07-03] MEDS: FUROSEMIDE 40 MG TABLET PO SCH (09:59)
[2022-07-03] MEDS: AMLODIPINE BESYLATE 5 MG TABLET PO SCH (09:59)
[2022-07-03] MEDS: MULTIVIT W/MINERALS 1 TAB TABLET PO SCH (10:00)
[2022-07-03] MEDS: LEVOTHYROXINE SODIUM 100 MCG TABLET PO SCH (10:00)
[2022-07-03] MEDS: PANTOPRAZOLE 40 MG TABLET.DR PO SCH (10:00)
[2022-07-03] MEDS: CYANOCOBALAMIN 500 MCG TABLET PO SCH (10:00)
[2022-07-03] MEDS: LamoTRIgine 100 MG TABLET PO SCH (10:00)
[2022-07-03] MEDS: GABAPENTIN 100 MG CAPSULE PO SCH ×3 (10:01→18:00)
[2022-07-03] MEDS: ARIPIPRAZOLE 5 MG TABLET PO SCH (10:01)
[2022-07-03 16:00] VITALS: BP 102/59
[2022-07-03] MEDS: MEGESTROL ACETATE 40 MG TABLET PO SCH (18:01)
--- NOTE | 2022-07-03 20:29 | NUR ---
RN NOTES:RECEIVED PT.IN HER ROOM RESTING ,PATIENT REMAINS DEPRESSED ISOLATIVE, WITHDRAWN, GUARDED.MALORDOURS ENCOURAGED TO TAKE SHOWER AND ENCOURAGED PT TO ATTEND IN GROUP ACTIVITIES.ENCOURAGED TO VERBALIZATION OF THOUGHTS AND FEELINGS.SAFETY PRECAUTIONS MAINTAINED.WILL CONTINUE TO MONITOR .Q15MIN FOR SAFETY AND BEHAVIOR.ROUNDS FOR SAFETY AND BEHAVIOR.
--- NOTE | 2022-07-03 20:37 | NUR ---
RN NOTES: PT. BP 105/65 , HELD COREG 12.5 FOR LOW BP, WILL CONTINUE TO MONITOR.
[2022-07-03 20:38] VITALS: BP 100/59
[2022-07-03 20:39] VITALS: BP 105/65
[2022-07-03] MEDS: MIRTAZAPINE 15 MG TABLET PO SCH (22:09)
[2022-07-04] MEDS: IPRATROPIUM NEB FS 0.5 MG/2.5 ML AMPUL.NEB NEB SCH ×4 (02:30→19:30)
[2022-07-04] MEDS: ALBUTEROL FS 2.5 MG/0.5 ML VIAL.NEB NEB SCH ×4 (02:30→19:30)
--- NOTE | 2022-07-04 07:10 | NUR ---
RN NOTES: REFUSED SHOWER AND REFUSED SKIN ASSESSMENT PT. REFUSED SHOWER AND REFUSED SKIN ASSESSMENT, PER PT. I DONT WANT SHOWER AT THIS TIME, PT BEHAVIOR UNCOOPERTIVE , EASILY AGITATED , ENCOURAGED X3 FOR SHOWER, BUT PT. STRONGLY REFUSED, WILL ENDORSE TO AM NURSE.
[2022-07-04 08:00] VITALS: BP 95/66
[2022-07-04] MEDS: SALINE NASAL SPRAY 0.65% 1 BOTTLE BOTTLE NS SCH ×2 (08:23→17:22)
[2022-07-04] MEDS: FLUTICASONE PROPIONATE 16 GM BOTTLE NS SCH ×2 (08:23→17:21)
[2022-07-04] MEDS: ENSURE ENLIVE 237 ML LIQUID (VANILLA) PO SCH ×2 (08:23→17:22)
[2022-07-04] MEDS: CARVEDILOL 12.5 MG TABLET PO SCH ×2 (08:24→21:00)
[2022-07-04] MEDS: AMLODIPINE BESYLATE 5 MG TABLET PO SCH (08:25)
[2022-07-04] MEDS: FUROSEMIDE 40 MG TABLET PO SCH (08:25)
[2022-07-04] MEDS: CLOTRIMAZOLE 1% 15 GM TUBE TP SCH ×2 (08:26→17:22)
[2022-07-04 08:28] LABS: BASOPHILS % (AUTO) 0.9 % (0.0-2.0); EOSINOPHILS % (AUTO) 5.5 % (0.0-6.0); HEMATOCRIT 41 % (33-45); HEMOGLOBIN 13.2 g/dL (11.5-14.8); LYMPHOCYTES # (AUTO) 1.6 K/uL (0.8-4.8); LYMPHOCYTES % (AUTO) 31.2 % (20.0-44.0); MEAN CORPUSCULAR HGB CONC 32 g/dl (31.0-36.0); MEAN CORPUSCULAR VOLUME 89 fL (82-100); MONOCYTES # (AUTO) 0.4 K/uL (0.1-1.30); MONOCYTES % (AUTO) 8.5 % (2.0-12.0); NEUTROPHILS # (AUTO) 2.8 K/uL (1.8-8.9); NEUTROPHILS % (AUTO) 53.9 % (43.0-81.0); PLATELET COUNT (AUTO) 217 K/uL (150-450); RED BLOOD CELL COUNT(AUTO) 4.64 MIL/uL (4.0-5.2); WHITE BLOOD COUNT (AUTO) 5.2 K/uL (4.3-11.0)
[2022-07-04] MEDS: CHOLECALCIFEROL 1,000 UNIT TABLET (VIT D3) PO SCH (08:29)
[2022-07-04] MEDS: MEGESTROL ACETATE 40 MG TABLET PO SCH ×2 (08:29→17:23)
[2022-07-04] MEDS: CYANOCOBALAMIN 500 MCG TABLET PO SCH (08:29)
[2022-07-04] MEDS: CALCIUM CARB 600MG /VIT D 1 EACH TABLET PO SCH (08:29)
[2022-07-04] MEDS: DOCUSATE SODIUM 250 MG CAPSULE PO SCH (08:29)
[2022-07-04] MEDS: LEVOTHYROXINE SODIUM 100 MCG TABLET PO SCH (08:30)
[2022-07-04] MEDS: GABAPENTIN 100 MG CAPSULE PO SCH ×3 (08:30→17:23)
[2022-07-04] MEDS: ARIPIPRAZOLE 5 MG TABLET PO SCH (08:30)
[2022-07-04] MEDS: MULTIVIT W/MINERALS 1 TAB TABLET PO SCH (08:30)
[2022-07-04] MEDS: LamoTRIgine 100 MG TABLET PO SCH (08:30)
[2022-07-04] MEDS: PANTOPRAZOLE 40 MG TABLET.DR PO SCH (08:30)
[2022-07-04 09:23] LABS: CALCIUM, SERUM 9.1 mg/dL (8.5-10.1); CREATININE 0.9 mg/dL (0.6-1.3); MAGNESIUM 2.2 mg/dL (1.8-2.4); PHOSPHORUS 3.2 mg/dL (2.5-4.9); POTASSIUM 3.5 mmol/L (3.5-5.1)
[2022-07-04 16:00] VITALS: BP 90/60
[2022-07-04 20:47] VITALS: BP_SYST 102; BP_SYST 95; BP_DIAS 52; BP_DIAS 63
[2022-07-04] MEDS: MIRTAZAPINE 15 MG TABLET PO SCH (21:39)
--- NOTE | 2022-07-04 21:40 | NUR ---
RN NOTES: PT. BP 102/63 , HELD COREG 12.5 FOR LOW BP, WILL CONTINUE TO MONITOR.
[2022-07-05] MEDS: IPRATROPIUM NEB FS 0.5 MG/2.5 ML AMPUL.NEB NEB SCH ×4 (00:56→19:30)
[2022-07-05] MEDS: ALBUTEROL FS 2.5 MG/0.5 ML VIAL.NEB NEB SCH ×4 (00:56→19:30)
[2022-07-05 08:00] VITALS: BP 103/72
[2022-07-05] MEDS: SALINE NASAL SPRAY 0.65% 1 BOTTLE BOTTLE NS SCH ×2 (08:56→16:59)
[2022-07-05] MEDS: FLUTICASONE PROPIONATE 16 GM BOTTLE NS SCH ×2 (08:56→16:59)
[2022-07-05] MEDS: AMLODIPINE BESYLATE 5 MG TABLET PO SCH (08:57)
[2022-07-05] MEDS: FUROSEMIDE 40 MG TABLET PO SCH (08:57)
[2022-07-05] MEDS: CARVEDILOL 12.5 MG TABLET PO SCH ×2 (08:57→21:00)
[2022-07-05] MEDS: ENSURE ENLIVE 237 ML LIQUID (VANILLA) PO SCH ×2 (08:58→16:57)
[2022-07-05] MEDS: CHOLECALCIFEROL 1,000 UNIT TABLET (VIT D3) PO SCH (09:01)
[2022-07-05] MEDS: DOCUSATE SODIUM 250 MG CAPSULE PO SCH (09:01)
[2022-07-05] MEDS: CYANOCOBALAMIN 500 MCG TABLET PO SCH (09:01)
[2022-07-05] MEDS: LEVOTHYROXINE SODIUM 100 MCG TABLET PO SCH (09:02)
[2022-07-05] MEDS: ARIPIPRAZOLE 5 MG TABLET PO SCH (09:02)
[2022-07-05] MEDS: CALCIUM CARB 600MG /VIT D 1 EACH TABLET PO SCH (09:02)
[2022-07-05] MEDS: MULTIVIT W/MINERALS 1 TAB TABLET PO SCH (09:02)
[2022-07-05] MEDS: MEGESTROL ACETATE 40 MG TABLET PO SCH ×2 (09:02→16:58)
[2022-07-05] MEDS: GABAPENTIN 100 MG CAPSULE PO SCH ×3 (09:02→16:58)
[2022-07-05] MEDS: PANTOPRAZOLE 40 MG TABLET.DR PO SCH (09:02)
[2022-07-05] MEDS: LamoTRIgine 100 MG TABLET PO SCH (09:02)
[2022-07-05] MEDS: CLOTRIMAZOLE 1% 15 GM TUBE TP SCH ×2 (09:03→16:58)
--- NOTE | 2022-07-05 13:54 | NUR ---
RT Accidentally clicked 1330 meds on EMAR. Patient REFUSED breathing tx.
[2022-07-05 16:00] VITALS: BP 100/66
--- NOTE | 2022-07-05 20:44 | NUR ---
RN NOTES: REFUSED SKIN ASSESSMENT AND REFUSED SHOWER PT. REFUSED SHOWER AND REFUSED WEEKLY SKIN ASSESSMENT, PER PT. I DONT WANT ANY SKIN ASSESSMENT AND SHOWER AT THIS TIME, PT BEHAVIOR UNCOOPERTIVE , EASILY AGITATED , ENCOURAGED X3 FOR SHOWER, BUT PT. STRONGLY REFUSED.
[2022-07-05 20:53] VITALS: BP 102/66
[2022-07-05] MEDS: MIRTAZAPINE 15 MG TABLET PO SCH (21:03)
[2022-07-06] MEDS: ALBUTEROL FS 2.5 MG/0.5 ML VIAL.NEB NEB SCH ×4 (01:01→19:30)
[2022-07-06] MEDS: IPRATROPIUM NEB FS 0.5 MG/2.5 ML AMPUL.NEB NEB SCH ×4 (01:01→19:30)
[2022-07-06 08:00] VITALS: BP 112/81
[2022-07-06] MEDS: MULTIVIT W/MINERALS 1 TAB TABLET PO SCH (09:51)
[2022-07-06] MEDS: GABAPENTIN 100 MG CAPSULE PO SCH ×3 (09:52→17:10)
[2022-07-06] MEDS: CALCIUM CARB 600MG /VIT D 1 EACH TABLET PO SCH (09:52)
[2022-07-06] MEDS: DOCUSATE SODIUM 250 MG CAPSULE PO SCH (09:52)
[2022-07-06] MEDS: PANTOPRAZOLE 40 MG TABLET.DR PO SCH (09:52)
[2022-07-06] MEDS: CHOLECALCIFEROL 1,000 UNIT TABLET (VIT D3) PO SCH (09:53)
[2022-07-06] MEDS: CARVEDILOL 12.5 MG TABLET PO SCH ×2 (09:53→21:00)
[2022-07-06] MEDS: ARIPIPRAZOLE 5 MG TABLET PO SCH (09:53)
[2022-07-06] MEDS: FUROSEMIDE 40 MG TABLET PO SCH (09:53)
[2022-07-06] MEDS: MEGESTROL ACETATE 40 MG TABLET PO SCH ×2 (09:54→17:10)
[2022-07-06] MEDS: AMLODIPINE BESYLATE 5 MG TABLET PO SCH (09:54)
[2022-07-06] MEDS: CYANOCOBALAMIN 500 MCG TABLET PO SCH (09:54)
[2022-07-06] MEDS: LamoTRIgine 100 MG TABLET PO SCH (09:54)
[2022-07-06] MEDS: ENSURE ENLIVE 237 ML LIQUID (VANILLA) PO SCH ×2 (09:55→17:10)
[2022-07-06] MEDS: SALINE NASAL SPRAY 0.65% 1 BOTTLE BOTTLE NS SCH ×2 (09:55→17:12)
[2022-07-06] MEDS: LEVOTHYROXINE SODIUM 100 MCG TABLET PO SCH (09:55)
[2022-07-06] MEDS: FLUTICASONE PROPIONATE 16 GM BOTTLE NS SCH ×2 (09:56→17:13)
[2022-07-06] MEDS: CLOTRIMAZOLE 1% 15 GM TUBE TP SCH ×2 (09:56→17:13)
--- NOTE | 2022-07-06 15:42 | NUR ---
SNF Referral: DOT sent clinicals to [facility] (P:[phone]) for placement. SW sent H & P, progress notes, and medication list.
[2022-07-06 16:00] VITALS: BP 100/60
--- NOTE | 2022-07-06 18:24 | NUR ---
RN-CO: DR LORENZO WAS NOTIFIED THAT HOLD OF PT IS EXPIRING. HE SAID HE WILL WRITE IT.
[2022-07-06 20:49] VITALS: BP 102/64
[2022-07-06] MEDS: MIRTAZAPINE 15 MG TABLET PO SCH ×3 (21:14→21:46)
--- NOTE | 2022-07-06 21:14 | NUR ---
GPS RN NOTE COREG HELD DUE TO DECREASED BLOOD PRESSURE 102/64.
--- NOTE | 2022-07-06 21:17 | NUR ---
GPS RN NOTE PATIENT REFUSED SCHEDULED REMERON. EXPLAINED RISKS/BENEFITS. MEDICATION RETURNED TO BIN. AT 2143 PATIENT REQUESTED TO TAKE HER REMERON. PULLED OUT FROM [facility] ANOTHER DOSE OF REMERON. ADMINISTERED MED ORDERED. CHARGE NURSE AWARE.
[2022-07-07] MEDS: IPRATROPIUM NEB FS 0.5 MG/2.5 ML AMPUL.NEB NEB SCH ×4 (01:30→19:30)
[2022-07-07] MEDS: ALBUTEROL FS 2.5 MG/0.5 ML VIAL.NEB NEB SCH ×4 (01:30→19:30)
[2022-07-07 08:00] VITALS: BP 109/74
[2022-07-07] MEDS: ENSURE ENLIVE 237 ML LIQUID (VANILLA) PO SCH ×2 (08:31→16:47)
[2022-07-07] MEDS: CLOTRIMAZOLE 1% 15 GM TUBE TP SCH ×2 (08:32→16:48)
[2022-07-07] MEDS: SALINE NASAL SPRAY 0.65% 1 BOTTLE BOTTLE NS SCH ×2 (08:32→16:47)
[2022-07-07] MEDS: FLUTICASONE PROPIONATE 16 GM BOTTLE NS SCH ×2 (08:32→16:47)
[2022-07-07] MEDS: PANTOPRAZOLE 40 MG TABLET.DR PO SCH (08:33)
[2022-07-07] MEDS: GABAPENTIN 100 MG CAPSULE PO SCH ×3 (08:33→16:47)
[2022-07-07] MEDS: MEGESTROL ACETATE 40 MG TABLET PO SCH ×3 (08:33→16:47)
[2022-07-07] MEDS: MULTIVIT W/MINERALS 1 TAB TABLET PO SCH (08:33)
[2022-07-07] MEDS: CHOLECALCIFEROL 1,000 UNIT TABLET (VIT D3) PO SCH (08:33)
[2022-07-07] MEDS: ARIPIPRAZOLE 5 MG TABLET PO SCH (08:33)
[2022-07-07] MEDS: DOCUSATE SODIUM 250 MG CAPSULE PO SCH (08:33)
[2022-07-07] MEDS: CYANOCOBALAMIN 500 MCG TABLET PO SCH (08:33)
[2022-07-07] MEDS: LamoTRIgine 100 MG TABLET PO SCH (08:33)
[2022-07-07] MEDS: CALCIUM CARB 600MG /VIT D 1 EACH TABLET PO SCH (08:33)
[2022-07-07] MEDS: LEVOTHYROXINE SODIUM 100 MCG TABLET PO SCH (08:33)
[2022-07-07] MEDS: CARVEDILOL 12.5 MG TABLET PO SCH ×2 (08:34→20:17)
[2022-07-07] MEDS: AMLODIPINE BESYLATE 5 MG TABLET PO SCH (08:35)
[2022-07-07] MEDS: FUROSEMIDE 40 MG TABLET PO SCH (08:35)
--- NOTE | 2022-07-07 08:45 | NUR ---
GPS RN NOTE PT REFUSED HER MEGACE MEDICATION THAT IS SCHEDULED AT 0900. EXPLAINED RISK AND BENEFITS X3 STILL STRONGLY REFUSED.
--- NOTE | 2022-07-07 11:52 | NUR ---
SNF Contact: [facility] (P:[phone]) [facility] admin came to assess the pt at the hospital and stated pt is accepted.
[2022-07-07 16:00] VITALS: BP 103/60
--- NOTE | 2022-07-07 17:15 | NUR ---
GPS RN NOTE PT REFUSED HER MEGACE MEDICATION THAT IS SCHEDULED AT 1700. EXPLAINED RISK AND BENEFITS X3 STILL STRONGLY REFUSED.
--- NOTE | 2022-07-07 19:00 | NUR ---
GPS RN CLOSING NOTE PATIENT IN HER ROOM RESTING COMFORTABLY IN BED. A/OX3, ABLE TO MAKE NEEDS KNOWN. NO S/SX OF ACUTE DISTRESS NOTED. PATIENT REMAINS ISOLATIVE, WITHDRAWN, GUARDED, APPEARS DEPRESSED. ENCOURAGED PT TO ATTEND IN GROUP ACTIVITIES BUT PT REFUSED, PREFERS TO STAY IN HER ROOM. NO VERBALIZATION OF THOUGHTS AND FEELINGS. PT DENIES SUICIDAL IDEATION. SAFETY PRECAUTIONS MAINTAINED. WILL ENDORSE TO PHOTOENGRAVING PROOFER APPRENTICE NURSE FOR SABIHA, SAFETY, AND BEHAVIOR MONITORING Q 15MINS.
[2022-07-07 20:08] VITALS: BP 113/65
[2022-07-07] MEDS: MIRTAZAPINE 15 MG TABLET PO SCH (21:31)
[2022-07-08] MEDS: IPRATROPIUM NEB FS 0.5 MG/2.5 ML AMPUL.NEB NEB SCH ×3 (01:30→13:30)
[2022-07-08] MEDS: ALBUTEROL FS 2.5 MG/0.5 ML VIAL.NEB NEB SCH ×3 (01:30→13:30)
[2022-07-08 08:00] VITALS: BP 104/64
[2022-07-08] MEDS: ENSURE ENLIVE 237 ML LIQUID (VANILLA) PO SCH (08:38)
[2022-07-08 09:00] VITALS: BP 104/64
[2022-07-08] MEDS: CARVEDILOL 12.5 MG TABLET PO SCH (09:00)
[2022-07-08] MEDS: AMLODIPINE BESYLATE 5 MG TABLET PO SCH (09:00)
--- NOTE | 2022-07-08 09:03 | NUR ---
Discharge Note: Patient will be discharged to [facility] located at [address] [place] [address]; ([phone]). Please arrange ambulance at 1PM. Spoke with [facility] from [facility] who stated they are ready to accept the patient today. SW attempted to contact pts Gibran Waters ([phone]) who is not answering any calls. Patient is aware and agreeable with discharge plans and presents with appropriate mood and congruent affect. Patient is alert and oriented x3, is unable to plan for self-care, however, is willing to receive care. Patient denies any suicidal or homicidal ideation. Patient will follow-up at the facility with (Psychiatrist) Dr. Michele Anaya located at [address] [place] [address]; ([phone]) and (Independent Video Producer) Dr. Renard Dang [address] [place] [address]; ([phone]). Patient presents with euthymic mood and congruent affect.
[2022-07-08] MEDS: CLOTRIMAZOLE 1% 15 GM TUBE TP SCH (09:21)
[2022-07-08] MEDS: SALINE NASAL SPRAY 0.65% 1 BOTTLE BOTTLE NS SCH (09:22)
[2022-07-08] MEDS: FLUTICASONE PROPIONATE 16 GM BOTTLE NS SCH (09:22)
[2022-07-08] MEDS: ARIPIPRAZOLE 5 MG TABLET PO SCH (09:23)
[2022-07-08] MEDS: CYANOCOBALAMIN 500 MCG TABLET PO SCH (09:23)
[2022-07-08] MEDS: GABAPENTIN 100 MG CAPSULE PO SCH ×2 (09:24→12:50)
[2022-07-08] MEDS: PANTOPRAZOLE 40 MG TABLET.DR PO SCH (09:24)
[2022-07-08] MEDS: CHOLECALCIFEROL 1,000 UNIT TABLET (VIT D3) PO SCH (09:24)
[2022-07-08] MEDS: MULTIVIT W/MINERALS 1 TAB TABLET PO SCH (09:24)
[2022-07-08] MEDS: DOCUSATE SODIUM 250 MG CAPSULE PO SCH (09:26)
[2022-07-08] MEDS: CALCIUM CARB 600MG /VIT D 1 EACH TABLET PO SCH (09:26)
[2022-07-08] MEDS: MEGESTROL ACETATE 40 MG TABLET PO SCH (09:26)
[2022-07-08] MEDS: LamoTRIgine 100 MG TABLET PO SCH (09:26)
[2022-07-08] MEDS: LEVOTHYROXINE SODIUM 100 MCG TABLET PO SCH (09:26)
[2022-07-08] MEDS: FUROSEMIDE 40 MG TABLET PO SCH (09:27)
--- NOTE | 2022-07-08 13:25 | NUR ---
DISCHARGE NOTE: 67 YEAR OLD FEMALE DISCHARGED TO [facility] IN STABLE CONDITION. COMPLIANT WITH MEDS, COOPERATIVE WITH TREATMENT PLANS. PT DENIES SI/HI AND INSTRUCTED TO GO TO THE CLOSEST ER IF DEVERLOPING SI/HI. BEHAVIOUR IMPROVED, PSYCHIATRIC TX PLANS MET, MEDICAL TX PLANS DEFERRED FOR CONTINUAL MONITORING . EDUCATED PT ABOUT AFTER CARE PLAN AND COPY PROVIDED. RETURNED PERSONAL BELONGINGS TO PT. MEDS RECONCILED WITH DR LORENZO AND DR STARK. REPORT GIVEN TO AVA KATZ AT [facility] FOR CONTINUITY OF CARE. PT SIGNED PAPERWORK. PT REFUSED TO HAVE A PICTURE TAKEN OF THE FUNGAL INFECTION UNDER BOTH BREAST. PT IN STABLE CONDITION AT TIME OF DISCHARGE. LEFT THE UNIT AT 1325 VIA AMBULANCE.
== END 2022-07-08 13:25 | DRG 885 ==
LOC: ER 11:14 → GPS 16:18
PROVIDERS: ADMIT Psychiatry & Neurology Psychiatry; ATTEND Nurse Practitioner Acute Care
DX: F25.9 Schizoaffective disorder, unspecified (principal); I11.0 Hypertensive heart disease with heart failure; I50.32 Chronic diastolic (congestive) heart failure; N39.0 Urinary tract infection, site not specified; R45.851 Suicidal ideations; E44.0 Moderate protein-calorie malnutrition; Z68.1 Body mass index [BMI] 19.9 or less, adult; F19.21 Other psychoactive substance dependence, in remission; F31.9 Bipolar disorder, unspecified; Z88.1 Allergy status to other antibiotic agents; Z79.51 Long term (current) use of inhaled steroids; Z79.899 Other long term (current) drug therapy; K21.9 Gastro-esophageal reflux disease without esophagitis; J45.909 Unspecified asthma, uncomplicated; L30.9 Dermatitis, unspecified; E87.6 Hypokalemia; Z85.841 Personal history of malignant neoplasm of brain; Z98.890 Other specified postprocedural states; B96.89 Other specified bacterial agents as the cause of diseases classified elsewhere; Z79.890 Hormone replacement therapy; Z91.51 Personal history of suicidal behavior; R79.89 Other specified abnormal findings of blood chemistry
CPT/HCPCS: 36415; 80048-TC; 80053-TC; 80061-TC; 80076-TC; 81001; 82565-TC; 82962-TC; 83735-TC; 84100-TC; 85025-TC; 87081-TC; 87086-TC; 94760-TC; 94799-TC; 97116-TC; 97530-TC; C9803; G0480; J0696; J7030; J7040; J7060